=== PATIENT | female | born 1980 | race Caucasian/White ===

== ENCOUNTER 2017-06-29 04:27 | Inpatient (IN) | payer OTHER ==
[~2017-06-29] VITALS: Ht 154.9 cm; Wt 83.9 kg
[~2017-06-29 04:27] MED LIST: IBUPROFEN 800800 MG PO; NORCO 5-325 TA1 EACH PO
[2017-06-29 04:32] VITALS: BP 134/81
[2017-06-29 04:50] LABS: ABSOLUTE BASOPHILS 0.1 thou/uL (0.0-0.2); ABSOLUTE EOSINOPHILS 0.1 thou/uL (0.0-0.7); ABSOLUTE LYMPHOCYTES 1.7 thou/uL (0.8-5.3); ABSOLUTE MONOCYTES 0.8 thou/uL (0.0-1.2); ABSOLUTE NEUTROPHILS 6.1 thou/uL (1.6-8.1); BASOPHILS 0.7 %; EOSINOPHILS 1.2 %; HEMATOCRIT 41.6 % (37.0-47.0); LYMPHOCYTES 19.6 %; MCH 30.9 pg (26.0-34.0); MCHC 33.6 g/dL (28.0-37.0); MCV 91.9 fL (80.0-100.0); MONOCYTES 9.5 %; MPV 9.1 fl. (7.2-11.1); NUCLEATED RBCS 0 /100WBC; PLATELET COUNT* 264 thou/uL (150-400); RBC 4.53 mil/uL (4.20-5.00); WBC 8.9 thou/uL (4.0-11.0)
[2017-06-29 04:58] LABS: CALCIUM 8.8 mg/dL (8.5-10.1); CREATININE 0.7 mg/dL (0.6-1.3); POTASSIUM 3.8 mmol/L (3.5-5.1)
[2017-06-29 05:02] LABS: TOTAL BILIRUBIN 0.2 mg/dL (<0.1-1.0); TOTAL PROTEIN 7.8 g/dL (6.4-8.2)
[2017-06-29 05:37] LABS: URINE BILIRUBIN NEGATIVE (Negative); URINE BLOOD 1+ (Negative); URINE CLARITY CLEAR; URINE COLOR YELLOW; URINE GLUCOSE-RANDOM NEGATIVE (Negative); URINE KETONES NEGATIVE (Negative); URINE LEUKOCYTES-REFLEX NEGATIVE (Negative); URINE NITRITE-REFLEX NEGATIVE (Negative); URINE PROTEIN NEGATIVE (Negative); URINE SPECIFIC GRAVITY 1.025 (1.005-1.030); URINE UROBILINOGEN 0.2 E.U./dl (0.2-1.0)
[2017-06-29 05:45] LABS: BACTERIA-REFLEX >30 Many /HPF (None Seen); CRYSTALS None Seen /LPF (None Seen); FINE GRANULAR CASTS 0-3 Few /LPF (None Seen); HYALINE CASTS 0-3 Few /LPF (None Seen); MUCUS 4-6 Moderate strn/LPF (None Seen); SQUAMOUS 0-3 Few /LPF (0-3); URINE RBC 3-10 Few /HPF (0-2); URINE WBC-REFLEX 0-5 Rare /HPF (0-5)
--- NOTE | 2017-06-29 06:30 | NUR ---
PRE-OP CHECK LIST COMPLETED
--- NOTE | 2017-06-29 06:35 | NUR ---
SURGERY HERE TO SEE PATIENT
[2017-06-29 09:22] VITALS: BP 115/55
[2017-06-29 19:45] VITALS: BP 131/68
--- NOTE | 2017-06-29 19:49 | NUR ---
PATIENT ARRIVED BACK TO UNIT AT 1715. ALERT AND ORIENTED X4. DENIES PAIN AND NAUSEA AT THIS TIME. IV IS PATENT AND INFUSING. TOLERATING CLEAR LIQUID DIET. VSS ON ROOM AIR. HOURLY ROUNDS HAVE BEEN MAINTAINED THROUGHOUT SHIFT. CALL LIGHT IS WITHIN REACH. NURSING WILL CONTINUE TO MONITOR.
[2017-06-30 00:03] VITALS: BP 124/72
[2017-06-30] MEDS ORDERED: NORCO 5-325 TA1 EACH PO (02:40)
[2017-06-30] MEDS ORDERED: FLAGYL500 MG PO (02:41)
[2017-06-30] MEDS ORDERED: CIPRO500 MG PO (02:42)
[2017-06-30 04:00] VITALS: BP 111/56
--- NOTE | 2017-06-30 04:52 | NUR ---
PATIENT HAS REMAINED ALERT AND ORIENTED X 4 THROUGHOUT THE SHIFT AND RESTING QUIETLY ON HOURLY ROUNDS. UP WITH CGA. VOIDING ADEQUATELY. DENIES NAUSEA WITH ORAL FLUIDS. MEDICATED FOR PAIN X 4 THIS SHIFT TO GOOD EFFECT. VITAL SIGNS STABLE. DRESSINGS TO ABDOMEN WITH LISA DRAIN INTACT LLQ. ANTIBIOTICS PROVIDED PER ORDERS. AT BEDSIDE. PROGRESSING TOWARDS DISCHARGE GOALS. CONTINUE TO MONITOR.
[2017-06-30 08:03] VITALS: BP 108/61
[2017-06-30 14:23] VITALS: BP 108/61
--- NOTE | 2017-06-30 15:06 | NUR ---
ASSUMED CARE OF PATIENT AFTER REPORT THIS MORNING. PATIENT AWAKE, ALERT, AND ORIENTED APPROPRIATELY. PHYSICAL ASSESSMENT COMPLETED AND CHARTED. COMPLAINED OF PAIN THIS SHIFT. GIVEN PRN AND SCHEDULED MEDICATIONS, SEE EMAR FOR DOCUMENTATION. VITAL SIGNS STABLE. OXYGEN SATURATION WITHIN NORMAL LIMITS ON ROOM AIR. PATIENT IS UP AD ISAIAH IN ROOM WITHOUT DIFFICULTY. RECEIVED DISCHARGE ORDERS FROM DR. BEAN. DISCHARGE PAPERWORK COMPLETED AND DISCUSSED WITH PATIENT, SIGNED BY ALL APPROPRIATE PARTIES. GIVEN SCRIPTS FOR FLAGYL, CIPRO, AND NORCO, EDUCATION REGARDING THESE ALSO GIVEN TO PATIENT. ALSO GAVE PATIENT EDUCATION AND RECORDING LOG FOR LISA DRAIN. DISCUSSED HOW TO EMPTY AND RECORD OUTPUT. PATIENT STATED SHE FELT COMFORTABLE WITH THE PROCESS. DENIES NEEDS. ALL QUESTIONS ANSWERED. IV DISCONTINUED. PATIENT DISCHARGED AT THIS TIME.
--- NOTE | 2017-07-03 12:25 | S ---
[facility] [address] [place] [address] SURGICAL PATH RPT PROCEDURE Name: ASH GUO Room: [address] IN ..#: [id number] Admission: 06/29/17 Date of : 78 Discharge: 06/30/17 Report #: [id number] Path Case #: [id number] PATHOLOGY REPORT COLLECTION DATE: 06/29/2017 RECEIVED DATE: 06/29/2017 SUBMITTING PHYS: Dr. Magalys Monteiro OTHER PHYS: Dr. Michael Estrada SPECIMEN(S) RECEIVED: A.Appendix * * * * * * * * * * * * FINAL DIAGNOSIS: Appendix: - Acute appendicitis with evidence of perforation and with acute periappendicitis and serositis. (LORENZO:jose maria; 07/03/2017) PATHOLOGIST: Vincenzo Jaimes M.D. REPORT ELECTRONICALLY SIGNED BY: Vincenzo Jaimes M.D. DATE/TIME: 07/03/2017 12:24 * * * * * * * * * * * * GROSS PATHOLOGY: The specimen is received in formalin labeled "abril Rodrigues". Received is a vermiform appendix measuring 4.5 cm in length by 0.6 cm in diameter with moderate amount of attached mesoappendix which is covered with overlying exudate. The appendix is predominantly fat wrapped and exposes a slight amount of pink-maldonado, smooth serosa. The surgical margin is inked. Sectioning reveals a pinpoint to slightly dilated lumen filled with fecal material. A perforation is noted at the distal tip. The specimen is submitted representatively in cassettes A1 and A2, with the proximal margin and perforated bisected tips submitted in cassette A1. (CAA; 06/30/2017) CLINICAL HISTORY: Pre-op diagnosis: Appendicitis Post-op diagnosis: Perforated appendicitis INITIAL CPT CODE(S): A; 88218 Professional services [place] [address] SURGICAL PATH RPT PROCEDURE Name: ASH GUO Room: [address]#: [id number] Admission: 06/29/17 Date of : 78 Discharge: 06/30/17 Report #: [id number] Path Case #: [id number] Technical services performed by [facility] at [address] [place] [address], [facility] [address] [address]. [facility] [place] [address] PHONE: [phone] DIRECTOR: Satinder Burroughs M.D. * * * END OF REPORT * * *
--- NOTE | 2017-07-09 09:10 | OP ---
[address] [address] OPERATIVE REPORT Name: ASH GUO Room: [address] IN M.R.#: [id number] Admission: 06/29/17 Attend Phys: Magalys Monteiro DO Discharge: 06/30/17 Date of : 78 Report #: [id number] THIS REPORT FOR: //name// CC: Michael Monteiro DATE OF SERVICE: 06/29/2017 PREPROCEDURE DIAGNOSIS: Acute appendicitis. POSTPROCEDURE DIAGNOSIS: Acute perforated appendicitis with a contained abscess. SURGEON: Magalys Monteiro DO. ENDOSCOPY TECHNICAN: Reji Gordon. PROCEDURE PERFORMED: Laparoscopic appendectomy. ANESTHESIA: General endotracheal and local. ESTIMATED BLOOD LOSS: 5 mL. DRAINS: 15-Indonesian LISA drain in the right lower quadrant. SPECIMENS: Appendix. CONDITION: Stable. DISPOSITION: PACU to the floor. COMPLICATIONS: None. HISTORY OF PRESENT ILLNESS: The patient is a very pleasant 36-year-old female who presented to the ER very early this morning with a complaint of right lower quadrant abdominal pain since Monday. Lab work was all benign. CT scan, however, did show acute appendicitis. She was then consented for laparoscopic appendectomy. Risks discussed included bleeding, infection, pain, scar formation, injury to bowel or bladder, hernia at the incision sites, need for an open procedure and risks of general anesthesia. The patient understood these risks and elected to proceed. DESCRIPTION OF PROCEDURE: The patient was brought to the operating room. She was laid supine on the operating room table. SCDs were placed on bilateral lower extremities. Ancef was given in the perioperative period. General endotracheal anesthesia was induced by anesthesia without difficulty. [address] [address] OPERATIVE REPORT Name: ASH GUO Room: [address] IN [facility].#: [id number] Admission: 06/29/17 Attend Phys: Magalys Monteiro DO Discharge: 06/30/17 Date of : 78 Report #: [id number] was prepped and draped in standard sterile fashion. Timeout was performed to verify the patient and procedure. A 10 mL of 0.5% Marcaine were injected in the infraumbilical area. Curvilinear infraumbilical incision was made with an 11 blade. Cautery was used for hemostasis. S retractors were used to visualize the fascia. Fascia was grasped and elevated between 2 Kochers. Fascia was incised using cautery. Peritoneum was bluntly entered using a Mabel clamp. Finger was swept into the abdomen to assure that there were no rickey-incisional adhesions, none were identified. Two stitches of 0 Vicryl placed on the fascia. Elsy trocar was introduced and secured with 0 Vicryl stitches. Abdomen was insufflated. The patient was placed head down and tilted towards the left. Two 5 mm trocars were introduced under direct visualization, one in the left lower quadrant, one in the suprapubic area. Cecum was then identified. It was gently rolled towards the midline. Base of the appendix was easily identified, but the remainder of the appendix was entirely retrocecal. The peritoneum overlying the appendix was incised using cautery and then using very gentle blunt dissection, the tip of the appendix was eventually identified. The tip of the appendix was necrotic and upon further inspection appeared to be perforated. There was a stool noted in the right lower quadrant, but this was all contained in the retrocecal space. Eventually, we were able to completely elevate the appendix. Thankfully, the base of the appendix was still noninflamed. [place] dissector was used to create a window at the base of the appendix. A 45 mm blue load Endo-NAM stapler was introduced and the base of the appendix was clamped and stapled without difficulty. The mesentery of the mesoappendix was then taken with 2 loads of a white load 45 mm Endo-NAM stapler. Specimen was then placed within an EndoCatch bag as was any stool, which was identified in the right lower quadrant. The area of the cavity and the entire right lower quadrant was then copiously irrigated until clear. A 15-Indonesian LISA drain was then brought through our left lower quadrant trocar and placed within the cavity. The patient was then rolled supine. Any further fluid in the pelvis was suctioned away. Our remaining 5 mm trocar was removed under direct visualization. There was no bleeding noted from the peritoneum. Abdomen was then completely desufflated. Elsy trocar was removed and EndoCatch bag was removed with the specimen intact. Kochers were placed on the fascia of the infraumbilical port. Previously placed 0 Vicryl stitches were removed and a #0 Vicryl stitch was placed in [id number] fashion with excellent approximation of the fascia. An additional 10 mL of 0.5% Marcaine were injected in the fascia. This wound was then closed in a layered fashion using deep and superficial stitches of 3-0 Vicryl in inverted interrupted fashion. All skin wounds were closed with 4-0 Monocryl. Our drain was sutured into place using 1 stitch of 2-0 nylon. A total of 50 mL of 0.5% Marcaine were used to anesthetize the wounds. Wounds were then cleansed and covered with Mastisol, Steri-Strips, 4 x 4's and a Tegaderm. Drain was covered with a 4 x 4 and a Tegaderm. The patient was then allowed to awaken from anesthesia, was extubated [place] [address] OPERATIVE REPORT Name: ASH GUO Room: [address] IN [facility].#: [id number] Admission: 06/29/17 Attend Phys: Magalys Monteiro DO Discharge: 06/30/17 Date of : 78 Report #: [id number] room with no further difficulties. Counts were correct at the conclusion of the case. <ELECTRONICALLY SIGNED> By: Magalys Monteiro DO 07/09/17 0910 1636 1823Clynnette Monteiro DO /nt
== END 2017-06-30 15:07 | disposition home or self-care (01) | DRG 340 ==
LOC: M.ERS 04:27 → M.ORTHSURG 08:23 → M.TBA-ER 08:23 → M.ORTHSURG 09:43
PROVIDERS: Family Medicine; ADMIT Surgery
PROC: 0DTJ4ZZ Resection of Appendix, Percutaneous Endoscopic Approach (ICD-10-PCS; principal; 2017-06-29)
DX: K35.3 Acute appendicitis with localized peritonitis (principal); F17.210 Nicotine dependence, cigarettes, uncomplicated; Z80.3 Family history of malignant neoplasm of breast; Z83.3 Family history of diabetes mellitus; Z82.49 Family history of ischemic heart disease and other diseases of the circulatory system